=== PATIENT | male | born 2000 | race Two or more races ===

== ENCOUNTER 2018-04-09 21:22 | Emergency (ER) | payer SELFPAY ==
--- NOTE | 2018-04-09 23:06 | ER Document Report ---
ED Cardiac - General Chief Complaint: Anxiety Stated Complaint: SHORTNESS OF BREATH Time Seen by Provider: 04/09/18 22:13 Mode of Arrival: Ambulatory Information source: Patient TRAVEL OUTSIDE OF THE [place] IN LAST 30 DAYS: No - HPI Patient complains to provider of: Palpitations Notes: Patient is here with complaints of shortness of breath and palpitations. He states that he was at work and for about 3 hours he felt like his heart was racing and he was feeling short of breath. He denies any chest pain. He denies any fever. No nausea, vomiting, diarrhea. States that currently he does not have that sensation but has been intermittent for the last few hours. Patient does have a history of anxiety, he states that he took anti-anxiety medication in the past but is not on any antianxiety medication at this time. States that this episode did feel similar to previous anxiety attacks he has had in the past. He denies any recent long trips or surgeries, leg pain or leg swelling, history of cancer, history of DVT or PE, smoking, drug use. No syncope. No other complaints. - Related Data Allergies/Adverse Reactions: No Known Allergies Allergy (Unverified 04/09/18 21:51) Past Medical History - Social History Smoking Status: Never Smoker Frequency of alcohol use: None Drug Abuse: None Family History: Reviewed & Not Pertinent Patient has suicidal ideation: No Patient has homicidal ideation: No Renal/ Medical History: Denies: Hx Peritoneal Dialysis Review of Systems - Review of Systems -: Yes All other systems reviewed and negative Physical Exam - Vital signs Vitals: Temp Pulse BP Pulse Ox 98.0 F 60 129/74 H 100 04/09/18 21:39 04/09/18 21:39 04/09/18 21:39 04/09/18 21:39 - Notes Notes: GENERAL: alert, cooperative, nontoxic, no distress. HEAD: normocephalic, atraumatic EYES: conjunctiva pink without discharge, no external redness or swelling. Pupils are equal, round, reactive to light. EARS: no external swelling, no external redness NOSE: atraumatic, no external swelling MOUTH/THROAT: mucous membranes moist and pink, posterior pharynx without erythema, swelling, exudate. No trismus or drooling. NECK: soft, supple, full range of motion, no meningismus. CHEST: no distress, lungs clear and equal throughout. No wheezing, rales, rhonchi. CARDIAC: regular rate and rhythm, no murmur, normal capillary refill, normal pulses. No peripheral edema noted. BACK: full range of motion, no CVA tenderness. EXTREMITIES: full range of motion of all extremities. No redness, no swelling. NEURO: alert and oriented x 3, cranial nerves II through XII are grossly intact. Upper and lower extremities are equal throughout. Normal sensation. No focal deficits, full range of motion of all extremities. PYSCH: appropriate mood, affect. Patient is cooperative. SKIN: pink, warm, dry, no rash. Course - Re-evaluation Re-evalutation: 04/10/18 01:29 Patient is nontoxic-appearing with stable vitals. Patient states that he was at work when he started to feel like his heart was racing he was feeling short of breath. This lasted for approximately 3 hours. It has been intermittent since that time and he denies any symptoms while I am evaluating him. On exam is completely benign exam. He has no PE risk factors, he is PERC rule negative for PE, he is Wells criteria negative for PE, therefore no further PE workup is needed in this patient who is low risk for PE and PE is very unlikely to be the source of his symptoms. Patient does have a history of anxiety, it is possible that he was having an anxiety attack as this certainly could give you the symptoms that he was having. It is also possible that he could have been having an arrhythmia. His EKG here is unremarkable. His lab work including electrolytes and TSH are all unremarkable. At this point since he has a history of anxiety, I will write him a prescription for Vistaril that he can take if he is having the symptoms again, but I did recommend that he follow-up with primary care or cardiology for possible Holter monitor to determine if the feeling of palpitations he was having was something more serious like a cardiac arrhythmia. He was instructed to get established with a primary care doctor or spark tester at the next available appointment for evaluation. He was also instructed to return the emergency department if he developed worsening symptoms , chest pain, significant trouble breathing, passes out, or has any further concerns. The patient is noted to have elevated blood pressure during today's emergency department visit. The patient was informed of this finding. The patient was instructed that this may be related to pre-hypertension and requires further evaluation with a primary care provider. The patient has no hypertensive symptoms at this time. The patient's emergency department workup and current diagnosis were explained to the patient and or family. Follow-up instructions were provided. Medications if prescribed were discussed. Instructions for when to return to the emergency department including specific worrisome symptoms were discussed with the patient and/or family. - Vital Signs Vital signs: Temp Pulse Resp BP Pulse Ox 98.0 F 60 129/74 H 100 04/09/18 21:39 04/09/18 21:39 04/09/18 21:39 04/09/18 21:39 - Laboratory Result Diagrams: 04/09/18 23:20 04/09/18 23:20 - Diagnostic Test Radiology reviewed: Image reviewed, Reports reviewed - Negative chest x-ray - EKG Interpretation by Me EKG shows normal: Sinus rhythm, [place], Intervals, QRS Complexes, ST-T Waves Rate: Normal When compared to previous EKG there are: Other - Mild ST elevation noted in V2, V3 consistent with early repolarization. Discharge - Discharge Clinical Impression: Palpitations Condition: Stable Disposition: HOME, SELF-CARE Instructions: Anxiety ([facility]), Palpitations (Irregular or Rapid Heartrate) ([facility]) Additional Instructions: Tylenol Motrin as needed for any pain. Take medications as prescribed. Follow- up with primary care or cardiology at the next available appointment for possible Holter monitor. Follow-up sooner or return emergency department for chest pain, difficulty breathing, passing out, persistent vomiting, or for any further concerns. Your blood pressure was elevated during today's visit. Have this rechecked with your doctor. Forms: Elevated Blood Pressure, Smoking Cessation Education Referrals: [facility] [Provider Group] - Follow up as needed IRENE MEDEL MD [ASSOCIATE] - Follow up as needed
[2018-04-09 23:31] LABS: ABSOLUTE BASOPHILS # (AUTO) 0.1 10^3/uL (0.0-0.2); ABSOLUTE EOSINOPHILS # (AUTO) 0.1 10^3/uL (0.0-0.6); ABSOLUTE LYMPHOCYTES (AUTO) 1.9 10^3/uL (0.5-4.7); ABSOLUTE MONOCYTES (AUTO) 0.5 10^3/uL (0.1-1.4); ABSOLUTE NEUT (AUTO) 6.8 10^3/uL (1.7-8.2); BASOPHILS % (AUTO) 0.6 % (0-2); EOSINOPHILS % (AUTO) 0.8 % (0-6); HEMATOCRIT 46.3 % (37.9-51.0); HEMOGLOBIN 15.7 g/dL (13.5-17.0); LYMPHOCYTES % (AUTO) 20.3 % (13-45); MEAN CORPUSCULAR HEMOGLOBIN 29.5 pg (27.0-33.4); MEAN CORPUSCULAR HGB CONC 33.9 g/dL (32.0-36.0); MEAN CORPUSCULAR VOLUME 87 fl (80-97); MONOCYTES % (AUTO) 5.6 % (3-13); PLATELET COUNT 193 10^3/uL (150-450); RED BLOOD COUNT 5.31 10^6/uL (4.35-5.55); RED CELL DISTRIBUTION WIDTH 13.1 % (11.5-14.0); SEGMENTED NEUTROPHILS % (AUTO) 72.7 % (42-78); TOTAL CELLS COUNTED % (AUTO) 100 %; WHITE BLOOD COUNT 9.4 10^3/uL (4.0-10.5)
--- NOTE | 2018-04-09 23:45 | RADIOLOGY REPORT (SQ) ---
EXAM DESCRIPTION: Single view of the chest CLINICAL HISTORY: sob, palpitations COMPARISON: None. FINDINGS: Single frontal view of the chest. The cardiomediastinal silhouette has normal size and contour. No consolidation, pneumothorax, or pleural effusion. No displaced rib fractures identified. Upper abdominal soft tissues are unremarkable. IMPRESSION: 1. No acute pulmonary process identified.
[2018-04-09 23:49] LABS: ALANINE AMINOTRANSFERASE 31 U/L (21-72); ALBUMIN 4.7 g/dL (3.5-5.0); ALKALINE PHOSPHATASE 59 U/L (38-126); ANION GAP 13 (5-19); ASPARTATE AMINO TRANSFERASE 25 U/L (17-59); BILIRUBIN,DIRECT 0.3 mg/dL (0.0-0.4); BILIRUBIN,TOTAL 0.6 mg/dL (0.2-1.3); BLOOD UREA NITROGEN 12 mg/dL (7-20); CALCIUM 10.2 mg/dL (8.4-10.2); CARBON DIOXIDE 28 mmol/L (22-30); CHLORIDE 101 mmol/L (98-107); GLUCOSE 90 mg/dL (75-110); PHOSPHORUS 3.9 mg/dL (2.5-4.5); POTASSIUM 3.7 mmol/L (3.6-5.0); SODIUM 141.8 mmol/L (137-145)
[2018-04-10 02:18] VITALS: BP 121/72
--- NOTE | 2018-04-10 08:26 | EKG REPORT ---
SEVERITY:- OTHERWISE NORMAL ECG - SINUS RHYTHM BORDERLINE RIGHT AXIS DEVIATION ST ELEV, PROBABLE NORMAL EARLY REPOL PATTERN : Confirmed by: Jonna Triana 10-Apr-2018 08:26:22
== END 2018-04-10 02:32 | disposition home or self-care (01) ==
LOC: ER 21:22
DX: R00.2 Palpitations (principal); R06.02 Shortness of breath; R03.0 Elevated blood-pressure reading, without diagnosis of hypertension; Z86.59 Personal history of other mental and behavioral disorders
CPT/HCPCS: 36415; 71045; 80053; 83735; 84100; 84443; 85025; 93005; 93010; 99285

== ENCOUNTER 2019-07-28 12:33 | Emergency (ER) | payer SELFPAY ==
[2019-07-28 12:45] VITALS: BP 111/66
--- NOTE | 2019-07-28 13:00 | ER Document Report ---
HPI - HPI Patient complains to provider of: history of panic attacks Time Seen by Provider: 07/28/19 12:50 Onset: This morning Onset/Duration: Sudden, Gone Severity: None Pain Level: Denies Context: 19-year-old male presents emergency department with reports that he had a panic attack this morning. Reports he started having panic attacks last year. Reports that he was evaluated here in the emergency department but never followed up with behavioral health. Denies suicidal or homicidal ideations. Reports he feels fine now. He is here for resources to follow-up with. Denies symptoms such as fever vomiting diarrhea. He reports he felt like his heart was racing this morning but it is not racing now. Also reports he was having some issues with his girlfriend. Denies suicidal or homicidal ideations. Associated Symptoms: None Exacerbated by: Denies Relieved by: Denies Similar symptoms previously: Yes Recently seen / treated by doctor: No - DERM Skin Color: Normal Past Medical History - General Information source: Patient - Social History Smoking Status: Never Smoker Cigarette use (# per day): No Frequency of alcohol use: None Drug Abuse: None Occupation: [employer] Lives with: Family - brother Family History: Reviewed & Not Pertinent Patient has suicidal ideation: No Patient has homicidal ideation: No - Medical History Medical History: Negative Renal/ Medical History: Denies: Hx Peritoneal Dialysis Psychiatric Medical History: Reports: Hx Depression Surgical Hx: Negative Vertical Provider Document - CONSTITUTIONAL Agree With Documented VS: Yes Exam Limitations: No Limitations General Appearance: WD/WN, No Apparent Distress - INFECTION CONTROL TRAVEL OUTSIDE OF THE [place] IN LAST 30 DAYS: No - HEENT HEENT: Atraumatic, Normocephalic. negative: Conjuctival Injection - NECK Neck: Normal Inspection, Supple. negative: Lymphadenopathy-Left, Lymphadenopathy-Right - RESPIRATORY Respiratory: Breath Sounds Normal, No Respiratory Distress - CARDIOVASCULAR Cardiovascular: Regular Rate, Regular Rhythm - GI/ABDOMEN Gastrointestinal: Abdomen Soft, Abdomen Non-Tender - MUSCULOSKELETAL/EXTREMETIES Musculoskeletal/Extremeties: JAMARCUS BOYER - NEURO Level of Consciousness: Awake, Alert, Appropriate Motor/Sensory: No Motor Deficit - DERM Integumentary: Warm, Dry Course - Re-evaluation Re-evalutation: 07/28/19 13:03 This 19-year-old male presents with complaints of history of panic attacks since last year. He was evaluated here in the emergency department once before for the same symptoms but never followed up with behavioral health. He denied suicidal homicidal ideations. He is calm. Reports he is not having a panic attack now. We discussed behavioral health. He was provided with a resource list of outpatient centers to follow-up with. He was also instructed to return to the emergency department should he need us, have a return of the panic attack, feel suicidal or homicidal. Patient agreed with plan of care. He answered all questions appropriately. The patient appears clinically to have the capacity to make this decision. Dictation of this chart was performed using voice recognition software; therefore, there may be some unintended grammatical errors. - Vital Signs Vital signs: Temp Pulse Resp BP Pulse Ox 98.3 F 60 16 111/66 99 07/28/19 12:44 07/28/19 12:44 07/28/19 12:44 07/28/19 12:44 07/28/19 12:44 Discharge - Discharge Clinical Impression: History of panic attacks Condition: Stable Disposition: HOME, SELF-CARE Instructions: Anxiety ([facility]) Additional Instructions: *You have been evaluated for a history of panic attacks Follow-up with mental health as discussed *Return to ED for worsening condition, changes, needs, suicidal or homicidal ideations
== END 2019-07-28 13:03 | disposition home or self-care (01) ==
LOC: ER 12:33
DX: F41.0 Panic disorder [episodic paroxysmal anxiety] (principal)
CPT/HCPCS: 99283